=== PATIENT | male | born 1965 ===

== ENCOUNTER 2017-12-25 13:20 | Emergency (ER) | payer SELFPAY ==
[~2017-12-25 13:20] MED LIST: HYDR7.5T76 PO; Z.0.NO CURRENT MEDS
[2017-12-25 13:34] VITALS: BP 132/60; PULSE 75; RESP 18; TEMP 97.8; O2SAT 100
[2017-12-25] MEDS ORDERED: BACT800T5 PO (14:12)
[2017-12-25] MEDS ORDERED: IBUPROFEN 800 MG TAB PO ONE (14:15)
--- NOTE | 2017-12-25 14:16 | PD ---
HPI Chief Complaint: Laceration/Skin Injury Time Seen by Provider: 13:44 (Monica Herbert) Time Seen by Provider: 13:44 (Aicha Awan MD) Travel History International Travel<30 days: No Contact w/Intl Traveler<30days: No Traveled to known affect area: No (Monica Herbert) History of Present Illness HPI 52-year-old male presents to the emergency room for evaluation of an abscess to his right dorsal forearm. Patient states 3 days ago he injected heroin into his forearm and must have missed. States he has never done that before. States it has been growing and increasing in pain. He has not done anything or taken anything for symptoms. Denies fever, chills, nausea, vomiting. (Monica Herbert) PFSH Past Medical History Diminished Hearing: No Kidney Stones: Yes (Monica Herbert) Social History Alcohol Use: No Tobacco Use: Yes (4 CIG. PER DAY) Substance Use: No (Monica Herbert) Allergies-Medications (Allergen,Severity, Reaction): Coded Allergies: No Known Allergies (Verified , 10/01/12) Reported Meds & Prescriptions Reported Meds & Active Scripts Active Bactrim DS (Sulfamethoxazole-Trimethoprim) 800-160 Mg Tab 1 Tab PO BID Vicoprofen 7.5 mg/200 mg (Hydrocodone Bitartrate/Ibuprofen) 1 Tab Tab 1 Tab PO Q8HPRN Reported No Current Meds (Miscellaneous Medication) Misc (Aicha Awan MD) Review of Systems Except as stated in HPI: all other systems reviewed are Neg (Monica Herbert) Physical Exam Narrative GENERAL: Well-nourished, well-developed male in no acute distress. Afebrile. Ambulatory. SKIN: Focused skin assessment warm/dry. There is an indurated area in the right dorsal forearm which measures about 4 cm in diameter. It is fluctuant but there is no pointing or drainage. There is a zone of inflammation around it but no lymphangitis. HEAD: Normocephalic. EYES: No scleral icterus. No injection or drainage. NECK: Supple, trachea midline. No JVD or lymphadenopathy. CARDIOVASCULAR: Regular rate and rhythm without murmurs, gallops, or rubs. RESPIRATORY: Breath sounds equal bilaterally. No accessory muscle use. MUSCULOSKELETAL: No cyanosis. Moderate edema distal to the right forearm. 2+ radial pulse. Radial, ulnar, and median nerves intact. (Monica Herbert) Data Data Last Documented VS Vital Signs Date Time Temp Pulse Resp B/P (MAP) Pulse Ox O2 Delivery O2 Flow Rate FiO2 12/25/17 13:34 97.8 75 18 132/60 (84) 100 (Aicha Awan MD) Orders Orders Ibuprofen (Motrin) (12/25/17 14:15) Ed Discharge Order (12/25/17 14:16) (Aicha Awan MD) MDM Medical Decision Making Medical Screen Exam Complete: Yes Emergency Medical Condition: Yes Medical Record Reviewed: Yes Differential Diagnosis Abscess, cellulitis, folliculitis, IV drug abuse Narrative Course 52-year-old male presents to the emergency room for evaluation of abscess to his right dorsal forearm for the past 3 days. Symptoms started after patient injected IV heroin. No other complaints. No systemic signs of infection. Vital signs stable. Physical exam reveals a 4 cm abscess to the right dorsal forearm without lymphangitis or surrounding cellulitis. Abscess was drained a significant purulent drainage. Patient discharged with prescription for Bactrim and told to follow-up with a primary care physician or return for worsening symptoms. He understands and agrees to plan. (Monica Herbert) Procedures Procedure Narrative INCISION AND DRAINAGE OF ABSCESS: The area was prepped and was sterilely draped. A subcutaneous wheal of 1% lidocaine with a total number 4 mL was used to anesthetize the area properly. A number 11 scalpel was used to make a 1 cm incision across the area of the abscess. The abscess was drained, complex loculations were broken down, and irrigated with normal saline. Sterile dressing applied. (Monica Herbert) Diagnosis Primary Impression: Abscess of right arm Referrals: Primary Care Physician Additional Instructions: Rest and drink plenty of fluids. Take Bactrim as directed, until gone. Follow up with a primary care physician. Return to emergency room for worsening symptoms, as discussed. Med/Other Pt SpecificInfo: Prescription(s) given (Monica Herbert) Scripts Sulfamethoxazole-Trimethoprim (Bactrim DS) 800-160 Mg Tab 1 TAB PO BID for Infection, #20 TAB 0 Refills Prov: Aicha Awan MD 12/25/17 Disposition: 01 DISCHARGE HOME Condition: Stable Monica Herbert Dec 25, 2017 14:16 Aicha Awan MD Dec 25, 2017 14:17
== END 2017-12-25 14:34 | disposition home or self-care (01) ==
LOC: NEPK 13:20
DX: L02.413 Cutaneous abscess of right upper limb (principal); F17.210 Nicotine dependence, cigarettes, uncomplicated
CPT/HCPCS: 10060

== ENCOUNTER 2018-04-06 17:27 | Inpatient (IN) ==
[2018-04-06] MEDS ORDERED: Clindamycin 900 mg/NS Premix 900 MG/50 ML PIGGYBACK IV.SIG ONE (19:12)
--- NOTE | 2018-04-06 19:18 | ED ---
HPI General Chief complaint: Skin/Abscess/Foreign Body Stated complaint: Skin Time Seen by Provider: 04/06/18 19:03 Source: patient Mode of arrival: ambulatory Limitations: no limitations History of Present Illness HPI narrative: Patient is a 52-year-old male, past medical history significant for IV drug abuse but reports his last use was approximately 3 weeks ago, who presents with complaint of pain and swelling to his hand. He states that a couple days ago he was working on a trailer sustained several cuts to his hand and arm. He states that he started to have pain, erythema, swelling and 1 of the lesions opened up and drained pus. He states that since then he has had several other lesions appear some of which have also drained pus. He has not had fever but has had chills. No recent antibiotic use. No chest pain or shortness of breath. No changes in urination. complaint: abscess/boil Onset (ago): day(s) Location: LUE Severity: moderate Quality: aching Pain Consistency: constant Relieving factors: none Exacerbating factors: palpation Context: IVDA Associated symptoms: chills Related Data Home Medications Medication Instructions Recorded Confirmed No Known Home Medications 04/06/18 04/06/18 Allergies Allergy/AdvReac Type Severity Reaction Status Date / Time No Known Allergies Allergy Verified 04/06/18 18:37 Review of Systems Except as stated in HPI: all other systems reviewed are negative Constitutional Reports chills Eyes Denies blurry vision ENT Denies nasal congestion Cardiovascular Denies chest pain Respiratory Denies dyspnea Gastrointestinal Denies abdominal pain Genitourinary Denies flank pain Musculoskeletal Reports back pain Integumentary/Breasts Reports erythema and Denies rash Neurologic Denies weakness Psychiatric Denies confusion Endocrine Reports fatigue PMFSH Medical History Medical History Patient denies medical problems (Acute) Surgical History Surgical History No history of previous surgery (Acute) Social History Social History Substance History: Active Abuse Second Hand Smoke Exposure: Yes Smoking Status: Current every day smoker Tobacco Type: Cigarettes How Often Do You Have a Drink Containing Alcohol: Never Recent Travel in [facility] within the Last 8 Weeks: No Recent Out of Country Travel within the Last 8 Weeks: No Substance Abuse Detail Marijuana: Substance Use Status: Active Route Used Substance Abuse: By Mouth Substance Frequency: everyday Reason for Use: Calm Down Immunization History Tetanus Immunization: <5 Years Tetanus Immunization Year if Known: 2016 Hx Influenza Vaccine This Season: No Exam Narrative Exam Narrative: GENERAL: Well-appearing male in no acute distress SKIN: Focused skin assessment warm/dry. Left upper extremity reveals several areas of cellulitis and what appear to be abscesses that have since drained. He does have one area of marked swelling, induration, fluctuance with erythema on the left wrist. No skin changes to the back. HEAD: Atraumatic. Normocephalic. EYES: Pupils equal and round. No scleral icterus. No injection or drainage. ENT: No nasal bleeding or discharge. Mucous membranes pink and moist. NECK: Trachea midline. No JVD. CARDIOVASCULAR: Regular rate and rhythm. No murmur appreciated. Intact and equal peripheral pulses. RESPIRATORY: No accessory muscle use. Clear to auscultation. Breath sounds equal bilaterally. GASTROINTESTINAL: Abdomen soft, non-tender, nondistended. Hepatic and splenic margins not palpable. MUSCULOSKELETAL: No obvious deformities. No clubbing. No cyanosis. No edema. Tenderness on palpation of the lumbar spine. NEUROLOGICAL: Awake and alert. No obvious cranial nerve deficits. Motor grossly within normal limits. Normal speech. PSYCHIATRIC: Appropriate mood and affect; insight and judgment normal. Procedures Abscess I/D Site: upper extremity Side (if applicable): left Sedation/analgesia: other (topical ethyl chloride) Irrigation: Yes Packing used?: none Course Hospital Course: On arrival patient was placed on a monitor and IV was established. Blood cultures were drawn. Labs are drawn and sent and he was given a dose of clindamycin. Imaging studies were ordered at time of arrival. Initial Documented Vital Signs Temperature 98.5 F 04/06/18 17:30 Pulse Rate 91 H 04/06/18 17:30 Respiratory Rate 17 04/06/18 17:30 Blood Pressure 125/72 04/06/18 17:30 Pulse Oximetry 100 04/06/18 17:30 Last Documented Vital Signs Temperature 98.5 F 04/06/18 17:30 Pulse Rate 91 H 04/06/18 17:30 Respiratory Rate 17 04/06/18 17:30 Blood Pressure 125/72 04/06/18 17:30 Pulse Oximetry 100 04/06/18 17:30 Medical Decision Making MDM Narrative Medical decision making narrative: Patient is a 52-year-old male, past medical history significant for IV drug abuse though he states he recently stopped doing this. Who presents with complaint of pain and swelling to his left upper extremity after he scratched it at work within the last week. He has several areas that appear to have been abscesses that have since drained in 1 acute abscess with fluctuance. This was drained at bedside by the DIVISION MANAGER. He is hemodynamically stable but labs do reveal a leukocytosis and creatinine elevation consistent with an acute kidney injury. He has been given fluids and clindamycin empirically. Blood and wound cultures were sent. CT of the lumbar spine was ordered but is pending. He has been admitted to Dr. Woody, hospitalist on-call for further workup and evaluation. Differential Diagnosis Differential Diagnosis: Differential diagnosis includes but is not limited to cellulitis, abscess, osteomyelitis, epidural abscess. Medical Records Medical records reviewed: Yes I reviewed the patient's medical records. Lab Data Lab results reviewed: Yes I reviewed the patient's lab results. Lab results narrative: Leukocytosis and acute kidney injury Result diagrams: 04/06/18 19:17 04/06/18 19:17 Lab Results 04/06/18 04/06/18 Range/Units 19:17 19:17 WBC 15.2 H (4.0-11.0) th/mm3 RBC 4.54 (4.50-5.90) mil/mm3 Hgb 13.0 (13.0-17.0) gm/dL Hct 39.2 (39.0-51.0) % MCV 86.4 (80.0-100.0) fL MCH 28.6 (27.0-34.0) pg MCHC 33.2 (32.0-36.0) % RDW 14.0 (11.6-17.2) % Plt Count 336 (150-450) th/mm3 MPV 8.4 (7.0-11.0) fL Sodium 134 L (136-145) meq/L Potassium 4.8 (3.5-5.1) meq/L Chloride 101 (98-107) meq/L Carbon Dioxide 26.1 (21.0-32.0) meq/L Anion Gap 7 (5-15) meq/L BUN 23 H (7-18) mg/dL Creatinine 1.67 H (0.60-1.30) mg/dL Estimated GFR 43 L (>89) mL/min Random Glucose 83 (74-106) mg/dL Calcium 9.2 (8.5-10.1) mg/dL Imaging Data Attestation: I personally reviewed and interpreted this imaging study as follows : My impression: No gas within the soft tissues. No acute fracture. Radiologist's impression: Forearm X-Ray 04/06/18 19:12 CONCLUSION: No evidence of fracture. Hand X-Ray 04/06/18 19:12 CONCLUSION: Soft tissue swelling. No evidence of fracture. Discharge Plan Discharge Disposition Patient Disposition: 30 Still Patient Discharge Condition Condition: Stable Discharge Details Diagnosis: Cellulitis and abscess of hand, except fingers and thumb, ABHILASH (acute kidney injury) Physicians Team ED Provider: Malu Rios ED Midlevel Provider: Dorothy Melton Primary Care Provider: Primary Care Natividad Fuller Attending Provider: Britany Woody Status ED Status: Admitted Patient
[2018-04-06 19:46] LABS: Hematocrit 39.2 % (39.0-51.0); Mean Corpuscular HGB Conc 33.2 % (32.0-36.0); Mean Corpuscular Hemoglobin 28.6 pg (27.0-34.0); Mean Corpuscular Volume 86.4 fL (80.0-100.0); Mean Platelet Volume 8.4 fL (7.0-11.0); Platelet Count 336 th/mm3 (150-450); Red Blood Count 4.54 mil/mm3 (4.50-5.90); White Blood Count 15.2 th/mm3 (4.0-11.0)
--- NOTE | 2018-04-06 20:04 | XR ---
EXAM DATE: 04/06/2018 7:57 PM EDT AGE/SEX: 52 years / Male INDICATIONS: Pain. Patient states he punctured his LT 4th digit on a musa nail two days ago and now has swelling along with discoloration increasing up his arm. CLINICAL DATA: This is the patient's initial encounter. Patient reports that signs and symptoms have been present for 2 days and indicates a pain score of 4/10. MEDICAL/SURGICAL HISTORY: . IV drug user. None. COMPARISON: No prior exams available for comparison. FINDINGS: 3 views of left hand. Soft tissue swelling is noted medially. Alignment within normal limits. No evid ence fracture. No focal bone erosion identified. No radiopaque foreign body identified. CONCLUSION: Soft tissue swelling. No evidence of fracture. Electronically signed by: Nabeel Andrews MD 04/06/2018 8:03 PM EDT
[2018-04-06 20:05] LABS: Calcium 9.2 mg/dL (8.5-10.1); Carbon Dioxide 26.1 meq/L (21.0-32.0); Potassium 4.8 meq/L (3.5-5.1)
--- NOTE | 2018-04-06 20:10 | XR ---
EXAM DATE: 04/06/2018 7:56 PM EDT AGE/SEX: 52 years / Male INDICATIONS: Pain. Patient states he punctured his LT 4th digit on a musa nail two days ago and now has swelling along with discoloration increasing up his arm. CLINICAL DATA: This is the patient's initial encounter. Patient reports that signs and symptoms have been present for 2 days and indicates a pain score of 3/10. MEDICAL/SURGICAL HISTORY: None. IV drug user. None. COMPARISON: [facility], HAND COMPLETE LEFT MIN 3V, 04/06/2018. . FINDINGS: 2 views of the left forearm. Bone alignment within normal limits. No evidence of fracture. No focal b one erosion. CONCLUSION: No evidence of fracture. Electronically signed by: Nabeel Andrews MD 04/06/2018 8:09 PM EDT
[2018-04-06] MEDS ORDERED: Sod Chloride 0.9% Inj 1,000 ML IV.SIG ONE (20:49)
[2018-04-06] MEDS ORDERED: Acetaminophen 325 MG Tablet PO PRN (21:40)
[2018-04-06] MEDS ORDERED: Temazepam 15 MG Capsule PO PRN (21:40)
[2018-04-06] MEDS ORDERED: Bisacodyl 10 MG Supp RECTAL PRN (21:40)
[2018-04-06] MEDS ORDERED: Sod Chloride 0.9% Inj 1,000 ML IV.CONT SCH (21:45)
--- NOTE | 2018-04-06 21:54 | P.HPIM ---
History of Present Illness Primary Care Physician: No Primary Care Physician History of Present Illness: This is a 52-year-old male with a PMH of Tobacco Abuse and IVDU who presented to the ER with complaints of left arm/hand pain and swelling for approx 3 days. States he last injected drugs 1wk ago. Few days later noticed left arm swelling and worsening pain w/ multiple abscesses, few of which have drained on their own. Denies fever or chills. On arrival, BP 125/72, HR 91, O2 sat 100% on RA, Afebrile. WBC 15.2. Creatinine 1.67, no previous labs for comparison. Hand X-ray with soft tissue swelling, no fracture. Forearm X-ray negative for fracture. S/p I&D in ER of left wrist/forearm abscess. S/p Clinda. - Diagnosis (1) SIRS (systemic inflammatory response syndrome) (2) IVDU (intravenous drug user) (3) Cellulitis and abscess of hand, except fingers and thumb (4) ABHILASH (acute kidney injury) (5) Back pain Inpatient Certification: I certify that the inpatient services were ordered in accordance with Medicare regulations governing the order. This includes certification that hospital inpatient services are reasonable and necessary and in the case of services not specified as inpatient-only under 42 CFR 419.22(n), that they are appropriately provided as inpatient services in accordance to with the 2-midnight benchmark under 43 CFR 412.3(e) Estimated Total Length of Stay (Days): 2 Plans for Post Hospital Care: Not yet determined Review of Systems PAST FAMILY HISTORY: Reviewed. No h/o DM or CAD All other systems reviewed negative except as stated [facility] - History History Provided By: Patient - Medical History Medical History: Medical History (Last Reviewed 04/06/18 @ 19:19 by Malu Rios MD) Patient denies medical problems - Surgical History Surgical History: Surgical History (Last Reviewed 04/06/18 @ 19:19 by Malu Rios MD) No history of previous surgery - Tobacco History Second Hand Smoke Exposure: Yes Tobacco Use In Past 30 Days: Yes Smoking Status: Current every day smoker Tobacco Type: Cigarettes - Alcohol History How Often Do You Have a Drink Containing Alcohol: Never - Substance Use History Substance History: Active Abuse - Substance Use Type Marijuana Status: Active Route Used: By Mouth Frequency: everyday Reason for Use: Calm Down - Travel History Recent Travel in the [place] Within the Last 8 Weeks: No Recent Travel Out of the Country Within the Last 8 Weeks: No - Immunization History Tetanus Immunization: <5 Years Tetanus Immunization Year if Known: 2016 Hx Influenza Vaccine This Season: No Medications and Allergies Active Medications: Active Medications Acetaminophen (Tylenol) 650 mg PO Q4H PRN PRN Reason: Temp > 100.4 Al Hydroxide/Mg Hydroxide (Milk Of Magnesia Liq) 30 ml PO Q12H PRN PRN Reason: Mild Constipation Bisacodyl (Dulcolax Supp) 10 mg RECTAL DAILY PRN PRN Reason: SEVERE CONSITIPATION Cefepime HCl 1,000 mg/ Sodium (Chloride) 100 mls @ 200 mls/hr IV.SIG Q12H CALVIN Sodium Chloride (Ns Inj) 1,000 mls @ 100 mls/hr IV.CONT .Q10H CALVIN Pharmacy Profile Note (Vancomycin Consult Pharmacy) 0 mls @ 0 mls/hr OTHER UNSCH CALVIN Lactulose (Lactulose Liq) 30 ml PO DAILY PRN PRN Reason: SEVERE CONSITIPATION Lorazepam (Ativan Inj) 1 mg IV.PUSH Q4H PRN PRN Reason: WITHDRAWAL/AGITATION Ondansetron HCl (Zofran Inj) 4 mg IV.PUSH Q6H PRN PRN Reason: NAUSEA OR VOMITING Senna/Docusate Sodium (Patience-Colace) 1 tab PO BID CALVIN Sennosides (Senokot) 17.2 mg PO Q12H PRN PRN Reason: Moderate Constipation Temazepam (Restoril) 15 mg PO HS PRN PRN Reason: INSOMNIA Allergies Allergy/AdvReac Type Severity Reaction Status Date / Time No Known Allergies Allergy Verified 04/06/18 18:37 Home Medications Medication Instructions Recorded Confirmed Type No Known Home Medications 04/06/18 04/06/18 History Exam Vital signs: Vital Signs 04/06/18 17:30 Temperature 98.5 F Pulse Rate 91 H Respiratory Rate 17 Blood Pressure 125/72 Pulse Oximetry 100 Intake & Output 04/06/18 04/06/18 04/07/18 06:59 18:59 06:59 Weight 70.307 kg Narrative: PE: GENERAL: Middle aged white male in no acute distress. HEENT: PERRLA, EOMI. No scleral icterus or conjunctival pallor. No lid lag or facial droop. CARDIOVASCULAR: Regular rate and rhythm. No obvious murmurs to auscultation. No chest tenderness to palpation. RESPIRATORY: No obvious rhonchi or wheezing. Clear to auscultation. Breath sounds equal bilaterally. GASTROINTESTINAL: Abdomen soft, non-tender, nondistended. BS normal. MUSCULOSKELETAL: Extremities without clubbing, cyanosis, or edema. No obvious deformities. LUE swelling from hand to forearm, multiple abscesses w/ previous drainage, large left wrist abscess s/p I&D. NEUROLOGICAL: Awake, alert and oriented x4. No focal neurologic deficits. Moving both upper and lower extremities spontaneously. Results - Labs CBC & Chem 7: 04/06/18 19:17 04/06/18 19:17 Labs: Short CBC 04/06/18 Range/Units 19:17 WBC 15.2 H (4.0-11.0) th/mm3 Hgb 13.0 (13.0-17.0) gm/dL Hct 39.2 (39.0-51.0) % Plt Count 336 (150-450) th/mm3 BMP 04/06/18 19:17 Sodium 134 L Potassium 4.8 Chloride 101 Carbon Dioxide 26.1 BUN 23 H Creatinine 1.67 H Calcium 9.2 - Imaging Impressions Forearm X-Ray 04/06/18 19:12 CONCLUSION: No evidence of fracture. Hand X-Ray 04/06/18 19:12 CONCLUSION: Soft tissue swelling. No evidence of fracture. Caprini VTE Risk Assessment Caprini VTE Risk Assessment: No/Low Risk (score <= 1) Caprini Risk Assessment Model: Point Value = 1 Point Value = 2 Point Value = 3 Point Value = 5 Age 41-60 Minor surgery BMI > 25 kg/m2 Swollen legs Varicose veins or History of unexplained or recurrent spontaneous Oral contraceptives or hormone replacement Sepsis (< 1 month) Serious lung disease, including pneumonia (< 1 month) Abnormal pulmonary function Acute myocardial infarction Congestive heart failure (< 1 month) History of inflammatory bowel disease Medical patient at bed rest Age 61-74 Arthroscopic surgery Major open surgery (> 45 min) Laparoscopic surgery (> 45 min) Malignancy Confined to bed (> 72 hours) Immobilizing plaster cast Central venous access Age >= 75 History of VTE Family history of VTE Factor V Leiden Prothrombin [id number] Lupus anticoagulant Anticardiolipin antibodies Elevated serum homocysteine Heparin-induced thrombocytopenia Other congenital or acquired thrombophilia Stroke (< 1 month) Elective arthroplasty Hip, pelvis, or leg fracture Acute spinal cord injury (< 1 month) Prophylaxis Regimen: Total Risk Factor Score Risk Level Prophylaxis Regimen 0-1 Low Early ambulation 2 Moderate Order ONE of the following: *Sequential Compression Device (SCD) *Heparin 5000 units SQ BID 3-4 Higher Order ONE of the following medications: *Heparin 5000 units SQ TID *Enoxaparin/Lovenox 40 mg SQ daily (WT < 150 kg, CrCl > 30 mL/min) *Enoxaparin/Lovenox 30 mg SQ daily (WT < 150 kg, CrCl > 10-29 mL/min) *Enoxaparin/Lovenox 30 mg SQ BID (WT < 150 kg, CrCl > 30 mL/min) AND/OR *Sequential Compression Device (SCD) 5 or more Highest Order ONE of the following medications: *Heparin 5000 units SQ TID (Preferred with Epidurals) *Enoxaparin/Lovenox 40 mg SQ daily (WT < 150 kg, CrCl > 30 mL/min) *Enoxaparin/Lovenox 30 mg SQ daily (WT < 150 kg, CrCl > 10-29 mL/min) *Enoxaparin/Lovenox 30 mg SQ BID (WT < 150 kg, CrCl > 30 mL/min) AND *Sequential Compression Device (SCD) Assessment and Plan - Assessment (1) SIRS (systemic inflammatory response syndrome) Code(s): R65.10 - Systemic inflammatory response syndrome (SIRS) of non- infectious origin without acute organ dysfunction Status: Acute (2) IVDU (intravenous drug user) Code(s): F19.90 - Other psychoactive substance use, unspecified, uncomplicated Status: Acute (3) Cellulitis and abscess of hand, except fingers and thumb Code(s): L03.119 - Cellulitis of unspecified part of limb; L02.519 - Cutaneous abscess of unspecified hand Status: Acute (4) ABHILASH (acute kidney injury) Code(s): N17.9 - Acute kidney failure, unspecified Status: Acute (5) Back pain Code(s): M54.9 - Dorsalgia, unspecified Status: Acute - Plan A/P: 1. SIRS: HR 94, WBC 15, Source-LUE cellulitis/abscess, s/p Clinda IV in ER, will continue w/ IV Abx, follow up cultures. 2. LUE Cellulitis/Abscess: secondary to IVDU, multiple abscesses some of which have previously drained, +large abscess left hand/wrist, s/p I&D, follow up wound cultures, Consult Hand Sx for further evaluation/intervention, continue w/ IV Vanc/Cefepime. 3. ABHILASH: Creatinine 1.67, no previous labs for comparison, presumably new. Check U/a, check UDS, IVF for hydration, monitor I/O, repeat labs in am. 4. IVDU: Ongoing, Ativan prn for withdrawal/agitation. 5. DVT Prophylaxis: SCD/Teds 6. Social work for dc planning as needed 7. Case discussed w/ ER physician at length, labs/records/imaging reviewed by me.
[2018-04-06] MEDS ORDERED: Vancomycin Inj 1,500 MG in Sodium Chlor 0.9% Inj 500 ML IV.SIG SCH (23:00)
--- NOTE | 2018-04-07 00:56 | CT ---
EXAM DATE: 04/07/2018 12:18 AM EDT AGE/SEX: 52 years / Male INDICATIONS: Low back pain. Evaluate for epidural abscess. CLINICAL DATA: This is the patient's initial encounter. Patient reports that signs and symptoms have been present for 1 day and indicates a pain score of 7/10. MEDICAL/SURGICAL HISTORY: . IV drug user None. RADIATION DOSE: 23.49 CTDI (mGy) COMPARISON: No prior exams available for comparison. TECHNIQUE: Contiguous axial images were acquired with a multirow detector CT scanner after intraveno us administration of 100 ml Omnipaque 350 (iohexol) nonionic water-soluble contrast as a single exam dose. Multiplanar reconstructions in the sagittal and coronal plane were also performed. Using auto mated exposure control and adjustment of the mA and/or kV according to patient size, radiation dose w as kept as low as reasonably achievable to obtain optimal diagnostic quality images. DICOM format im age data is available electronically for review and comparison. FINDINGS: Vertebrae: Normal vertebral body height. No focal areas of bony destruction. Alignment: Normal. No subluxation. Post Contrast: No abnormal areas of enhancement are seen in the cord, dural or paraspinal regions. Other: Atrophic left kidney. There is a calcified stone measuring 1.3 cm tip to junction of the extra renal pelvis and proximal left ureter. Upper pole cysts. The visualized portion of the right kidney i s normal. T12-L1: The thecal sac has a normal diameter. No evidence of disc bulge or protrusion. The neural foramina are patent bilaterally. L1-L2: The thecal sac has a normal diameter. No evidence of disc bulge or protrusion. The neural f oramina are patent bilaterally. L2-L3: The thecal sac has a normal diameter. No evidence of disc bulge or protrusion. The neural f oramina are patent bilaterally. L3-L4: Mild broad-based bulging of the disc flattens the ventral margin of the thecal sac and extend s into the neural foramina bilaterally. No evidence of disc protrusion. L4-L5: Minimal bulging of the disc flattens the ventral margin of thecal sac and extends into the ne ural foramina bilaterally. Lateral recesses are patent. No evidence of disc protrusion. L5-S1: Central protrusion of the disc is contained within the epidural fat does not cause significan t deformity of the thecal sac. There is extension into the neural foramina bilaterally with probable neural impingement within the neural foramina. CONCLUSION: 1. No evidence of epidural abscess. 2. Broad-based protrusion of the L5-S1 disc with probable neural impingement bilaterally with neural foramina. 3. Mild disc bulging L3-4 and L4-5. 4. Abnormal appearance to the left kidney with marked atrophy. There is also a large calcified stone at the junction of the extrarenal pelvis and proximal left ureter. Electronically signed by: Aba Fair MD 04/07/2018 12:55 AM EDT
[2018-04-07 01:02] LABS: Bilirubin,Urine Negative (Negative); Clarity,Urine Clear (Clear); Color,Urine Straw (Yellw/Straw); Glucose,Urine (UA) Negative (Negative); Leukocyte Esterase,Urine Negative (Negative); Nitrite,Urine Negative (Negative); Specific Gravity,Urine 1.026 (1.002-1.035); Squamous Epithelial Cell,Urine <1 /hpf (0-5)
[2018-04-07 01:09] LABS: Amphetamine Screen,Urine Neg (Neg); Barbiturate Screen,Urine Neg (Neg); Cannabinoid Screen,Urine Pos (Neg); Cocaine Screen,Urine Neg (Neg)
[2018-04-07 01:10] LABS: Opiate Screen,Urine Pos (Neg)
--- NOTE | 2018-04-07 08:41 | P.PNIM ---
Subjective Interval history: Patient reports feeling well. He denies any fever, chills. He reports his pain is well-controlled with his current pain medications. He showed me the abscess on his left wrist status post incision and drainage. He reports that he still has motor function and sensation in his left hand. I recommended continuing to express the abscess. Physical Exam Vital signs: Vital Signs 04/06/18 17:30 04/06/18 21:43 04/07/18 00:00 Temperature 98.5 F 98.2 F 97 F L Pulse Rate 91 H 88 55 L Respiratory Rate 17 20 16 Blood Pressure 125/72 136/72 122/60 Pulse Oximetry 100 97 98 04/07/18 04:00 Temperature 97.9 F Pulse Rate 77 Respiratory Rate 18 Blood Pressure 116/69 Pulse Oximetry 98 Intake & Output 04/06/18 04/07/18 04/07/18 18:59 06:59 18:59 Intake Total 460 / 460 Balance 460 / 460 Weight 70.307 kg 65.8 kg Intake: IV 100 / 100 Maxipime Inj 1,000 MG In NS Inj 100 / 100 100 ML @ 200 mls/hr IV.SIG Q12H [facility] Rx#:[id number] Oral 360 / 360 Other: # Voids 3 Weight On Admission 65.8 kg Narrative: PE: GENERAL: Middle aged white male in no acute distress. HEENT: PERRLA, EOMI. No scleral icterus or conjunctival pallor. No lid lag or facial droop. CARDIOVASCULAR: Regular rate and rhythm. No obvious murmurs to auscultation. No chest tenderness to palpation. RESPIRATORY: No obvious rhonchi or wheezing. Clear to auscultation. Breath sounds equal bilaterally. GASTROINTESTINAL: Abdomen soft, non-tender, nondistended. BS normal. MUSCULOSKELETAL: Extremities without clubbing, cyanosis, or edema. No obvious deformities. Multiple abscesses w/ previous drainage, on LUE, now with multiple well-healing scabs. Large left wrist abscess on dorsum of left wrist s/p I&D. 1 cm incision surrounded by 4 cm diameter of swelling elevated about 1 cm off of the skin. When pushing on the abscess, a few cc of purulent material is expressed. 2+ left radial pulse. Neurovascularly intact to left hand with intact motor and sensation, less than 2 second capillary refill. NEUROLOGICAL: Awake, alert and oriented x4. No focal neurologic deficits. Moving both upper and lower extremities spontaneously. Results - Labs CBC & Chem 7: 04/06/18 19:17 04/06/18 19:17 Laboratory Results - last 24 hr 04/06/18 04/06/18 04/07/18 19:17 19:17 00:15 WBC 15.2 H RBC 4.54 Hgb 13.0 Hct 39.2 MCV 86.4 MCH 28.6 MCHC 33.2 RDW 14.0 Plt Count 336 MPV 8.4 Sodium 134 L Potassium 4.8 Chloride 101 Carbon Dioxide 26.1 Anion Gap 7 BUN 23 H Creatinine 1.67 H Estimated GFR 43 L Random Glucose 83 Calcium 9.2 Urine Color Urine Clarity Urine pH Ur Specific Rupert Urine Protein Urine Glucose (UA) Urine Ketones Urine Occult Blood Urine Nitrate Urine Bilirubin Urine Urobilinogen Ur Leukocyte Esterase Urine RBC Urine WBC Ur Squamous Epith Cells Micro UA Comment Urine Culture Comments Urine Opiates Screen Pos H Ur Barbiturates Screen Neg Ur Amphetamines Screen Neg U Benzodiazepines Scrn Neg Urine Cocaine Screen Neg U Cannabinoids Screen Pos H 04/07/18 00:15 WBC RBC Hgb Hct MCV MCH MCHC RDW Plt Count MPV Sodium Potassium Chloride Carbon Dioxide Anion Gap BUN Creatinine Estimated GFR Random Glucose Calcium Urine Color Straw Urine Clarity Clear Urine pH 5.0 Ur Specific Rupert 1.026 Urine Protein Negative Urine Glucose (UA) Negative Urine Ketones Negative Urine Occult Blood Negative Urine Nitrate Negative Urine Bilirubin Negative Urine Urobilinogen Less than 2 Ur Leukocyte Esterase Negative Urine RBC Less than 1 Urine WBC Less than 1 Ur Squamous Epith Cells <1 Micro UA Comment Culture not ind Urine Culture Comments Culture not ind Urine Opiates Screen Ur Barbiturates Screen Ur Amphetamines Screen U Benzodiazepines Scrn Urine Cocaine Screen U Cannabinoids Screen Microbiology 04/06/18 21:10 Abscess - Arm Gram Stain - Final - Imaging Impressions Forearm X-Ray 04/06/18 19:12 CONCLUSION: No evidence of fracture. Hand X-Ray 04/06/18 19:12 CONCLUSION: Soft tissue swelling. No evidence of fracture. Lumbar Spine CT 04/06/18 19:18 CONCLUSION: 1. No evidence of epidural abscess. 2. Broad-based protrusion of the L5-S1 disc with probable neural impingement bilaterally with neural foramina. 3. Mild disc bulging L3-4 and L4-5. 4. Abnormal appearance to the left kidney with marked atrophy. There is also a large calcified stone at the junction of the extrarenal pelvis and proximal left ureter. Assessment and Plan - Plan A/P: This is a 52-year-old male with a PMH of IVDU who presented to the ER with complaints of left arm/hand pain and swelling for approx 3 days. States he last injected drugs 1wk ago. 1. SIRS c/f sepsis: HR < 90 since yesterday, WBC 15 yesterday, Source-LUE cellulitis/abscess, s/p Clinda IV in ER on 04/06/18, will continue w/ IV Abx with Vanc and Cefepime (04/07/18 - present), blood cultures pending. 2. LUE Cellulitis/Abscess: secondary to IVDU, multiple abscesses some of which have previously drained, +large abscess left hand/wrist, s/p I&D, wound cultures show rare WBCs, few gram positive cocci in pairs, Consult Hand Sx for further evaluation/intervention, continue w/ IV Vanc/Cefepime. Plan for IV abx for 48 hours, f/u blood culture with sensitivities to help guide oral abx for d/ c. Addendum: Hand surgery consult recommendations appreciated below: - continue follow up with wound clinic - no intervention at this time; ; no f/u with hand surgery at this time; d/c per primary team 3. ABHILASH: Creatinine 1.67, no previous labs for comparison, presumably new. U/ a unremarkable, UDS + for marijuana and opiates, IVF for hydration, monitor I/O , repeat labs in am. 4. IVDU: Ongoing, Ativan prn for withdrawal/agitation. 5. DVT Prophylaxis: SCD/Teds 6. Social work for dc planning as needed 7. labs/records/imaging reviewed by me Code Status: Full code Discharge Planning: Plan for IV abx for 48 hours, d/c pending blood culture with sensitivities to help guide oral abx for d/c.
[2018-04-07] MEDS ORDERED: Vancomycin Consult Pharmacy 1 EACH OTHER SCH (09:00)
[2018-04-07] MEDS ORDERED: Senna/Docusate Sodium 8.6/50 MG Tablet PO SCH (09:00)
[2018-04-07] MEDS ORDERED: Gadobutrol PF 2 MMOL/2 ML Vial (for RAD) IV.SIG ONE (09:31)
--- NOTE | 2018-04-07 10:09 | MR ---
EXAM DATE: 04/07/2018 9:51 AM EDT AGE/SEX: 52 years / Male INDICATIONS: Abscess. Draining wound dorsal aspect mid left wrist. CLINICAL DATA: This is the patient's initial encounter. Patient reports that signs and symptoms have been present for 2 days and indicates a pain score of 3/10. MEDICAL/SURGICAL HISTORY: . IVDA. None. COMPARISON: No prior exams available for comparison. TECHNIQUE: Multiplanar, multisequence MRI examination was performed without contrast and after intra venous administration of 6cc ml Gadavist (gadobutrol) contrast as a single exam dose. FINDINGS: Marrow: There is homogeneous signal in the marrow of the visualized bones of the wrist. Triangular Fibrocartilage Complex: The TFC complex is intact. Intrinsic Carpal Ligaments: The scapholunate and lunotriquetral ligaments are intact. Extensor Tendons: No evidence of tear, displacement, or tenosynovitis in the extensor carpi ulnaris, extensor digiti minimi, extensor digitorum, extensor pollicis longus, extensor carpi radialis brevis , extensor carpi radialis longus, extensor pollicis brevis, and abductor pollicis longus tendons. Carpal Tunnel/Flexor Tendons: The median nerve has a normal size, shape, and signal. The flexor ret inaculum is not thickened or bowed. The flexor tendons are unremarkable. Ulnar Nerve: Normal in course, size, and signal. No evidence of compression at Guyon's canal. Soft Tissues: Soft tissues demonstrate extensive circumferential soft tissue edema, most pronounced along the dorsal aspect of the wrist at the distal radial ulnar joint level where there is a rim-enha ncing irregular fluid collection measuring 1.3 cm anterior posterior by 9 mm transversely by 1.3 cm i n length. Joints: No evidence of erosion, effusion, or malalignment in the distal radioulnar joint, intercarpa l joints, or carpal-metacarpal joints. CONCLUSION: 1. Since of subcutaneous edema with a focal abscess overlying the dorsal aspect of the wrist at the level of the distal radial ulnar joint. No evidence of extension into the deeper soft tissues. Electronically signed by: Nory Koroma MD 04/07/2018 10:07 AM EDT
--- NOTE | 2018-04-07 10:36 | P.PNOP ---
Physical Exam Vital signs: Vital Signs 04/06/18 17:30 04/06/18 21:43 04/07/18 00:00 Temperature 98.5 F 98.2 F 97 F L Pulse Rate 91 H 88 55 L Respiratory Rate 17 20 16 Blood Pressure 125/72 136/72 122/60 Pulse Oximetry 100 97 98 04/07/18 04:00 04/07/18 08:00 Temperature 97.9 F 98 F Pulse Rate 77 79 Respiratory Rate 18 18 Blood Pressure 116/69 132/76 Pulse Oximetry 98 98 Intake & Output 04/06/18 04/07/18 04/07/18 18:59 06:59 18:59 Intake Total 460 / 460 1000 / 1000 Balance 460 / 460 1000 / 1000 Weight 70.307 kg 65.8 kg Intake: IV 100 / 100 1000 / 1000 NS Inj 1,000 ML @ 100 mls/hr IV 1000 / 1000 .CONT .Q10H [facility] Rx#:[id number] Maxipime Inj 1,000 MG In NS Inj 100 / 100 100 ML @ 200 mls/hr IV.SIG Q12H [facility] Rx#:[id number] Oral 360 / 360 Other: # Voids 3 Weight On Admission 65.8 kg Results - Labs CBC & Chem 7: 04/06/18 19:17 04/06/18 19:17 Laboratory Results - last 24 hr 04/06/18 04/06/18 04/07/18 19:17 19:17 00:15 WBC 15.2 H RBC 4.54 Hgb 13.0 Hct 39.2 MCV 86.4 MCH 28.6 MCHC 33.2 RDW 14.0 Plt Count 336 MPV 8.4 Sodium 134 L Potassium 4.8 Chloride 101 Carbon Dioxide 26.1 Anion Gap 7 BUN 23 H Creatinine 1.67 H Estimated GFR 43 L Random Glucose 83 Calcium 9.2 Urine Color Urine Clarity Urine pH Ur Specific Wilsey Urine Protein Urine Glucose (UA) Urine Ketones Urine Occult Blood Urine Nitrate Urine Bilirubin Urine Urobilinogen Ur Leukocyte Esterase Urine RBC Urine WBC Ur Squamous Epith Cells Micro UA Comment Urine Culture Comments Urine Opiates Screen Pos H Ur Barbiturates Screen Neg Ur Amphetamines Screen Neg U Benzodiazepines Scrn Neg Urine Cocaine Screen Neg U Cannabinoids Screen Pos H 04/07/18 00:15 WBC RBC Hgb Hct MCV MCH MCHC RDW Plt Count MPV Sodium Potassium Chloride Carbon Dioxide Anion Gap BUN Creatinine Estimated GFR Random Glucose Calcium Urine Color Straw Urine Clarity Clear Urine pH 5.0 Ur Specific Wilsey 1.026 Urine Protein Negative Urine Glucose (UA) Negative Urine Ketones Negative Urine Occult Blood Negative Urine Nitrate Negative Urine Bilirubin Negative Urine Urobilinogen Less than 2 Ur Leukocyte Esterase Negative Urine RBC Less than 1 Urine WBC Less than 1 Ur Squamous Epith Cells <1 Micro UA Comment Culture not ind Urine Culture Comments Culture not ind Urine Opiates Screen Ur Barbiturates Screen Ur Amphetamines Screen U Benzodiazepines Scrn Urine Cocaine Screen U Cannabinoids Screen Microbiology 04/06/18 21:10 Abscess - Arm Gram Stain - Final - Imaging Impressions Forearm X-Ray 04/06/18 19:12 CONCLUSION: No evidence of fracture. Hand X-Ray 04/06/18 19:12 CONCLUSION: Soft tissue swelling. No evidence of fracture. Lumbar Spine CT 04/06/18 19:18 CONCLUSION: 1. No evidence of epidural abscess. 2. Broad-based protrusion of the L5-S1 disc with probable neural impingement bilaterally with neural foramina. 3. Mild disc bulging L3-4 and L4-5. 4. Abnormal appearance to the left kidney with marked atrophy. There is also a large calcified stone at the junction of the extrarenal pelvis and proximal left ureter. Wrist MRI 04/07/18 00:00 CONCLUSION: 1. Since of subcutaneous edema with a focal abscess overlying the dorsal aspect of the wrist at the level of the distal radial ulnar joint. No evidence of extension into the deeper soft tissues. Assessment and Plan - Assessment and Plan Please see dictated consult note. 52yM superficial abscess dorsum L wrist s/p I&D by ER physician. MRI shows superficial edema with no involvement deep structures -No indication for surgical intervention at this time, followup with wound clinic or PCP. Okay to discharge per hand surgery once antibiotic needs determined by primary team. Will sign off.
--- NOTE | 2018-04-07 10:48 | MB ---
cc: Janett Hayden MD DATE: 04/07/2018 REASON FOR CONSULTATION: Abscess, left dorsal wrist. HISTORY OF PRESENT ILLNESS: Viktor is a 52-year-old right hand dominant male, who states he does have a past medical history significant for IV drug use, but he denies injecting over the left wrist. He states that he scraped his left ring finger on a nail approximately 1 week ago and then approximately 2 days ago noted an abscess over the dorsum of the left wrist. He presented to the emergency room for evaluation. He underwent incision and drainage by the emergency room physician last night with a dressing in place. He reports improvement in the pain and swelling since the incision and drainage. He has multiple track dasilva over the left forearm. Compartments are soft and compressible. He denies any paresthesias. PAST MEDICAL HISTORY: Denies. PAST SURGICAL HISTORY: Unknown. 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 He is a daily smoker. The patient admits to marijuana use, as well as IV drugs in the past. Urine also positive for opioids. ALLERGIES: NO KNOWN DRUG ALLERGIES. PHYSICAL EXAMINATION: The patient is alert and oriented. Exam of the left hand shows mild edema. Compartments are soft and compressible in the forearm. Sensation intact in the median, ulnar and radial distribution. The patient has good extension and flexion of his fingers. 2+ radial pulse. There is approximately a 1-2 cm incision over the dorsum of the wrist where the emergency room physician performed incision and drainage. There is purulent drainage draining from this wound. The patient has no pain with passive range of motion of the left wrist. LABORATORY DATA: White count of 15.2. Gram stain at this time has few gram positive cocci. IMAGING: X-ray shows no evidence of fracture or osteomyelitis. I ordered an MRI, which shows a very superficial abscess with no evidence of tenosynovitis or deep collection in the wrist. ASSESSMENT AND PLAN: A 52-year-old male with a superficial abscess, which has been drained by the emergency room, over the left wrist. The patient may be continued to be followed in the Wound Clinic. No indication for hand surgery at this time. No indication for followup with hand surgery. The patient may be discharged per the primary team once antibiotics and cultures are resulted. I will sign off. Please call with any questions. Janett Hayden MD [facility]/EVETTE , 10:33 AM , 10:40 AM YOBANI
[2018-04-07 13:36] LABS: Baso # (Auto) 0.1 th/mm3 (0.0-0.2); Baso % (Auto) 0.9 % (0.0-2.0); Eos # (Auto) 0.1 th/mm3 (0.0-0.4); Eos % (Auto) 1.2 % (0.0-4.0); Hematocrit 39.5 % (39.0-51.0); Lymph # (Auto) 1.4 th/mm3 (1.0-4.8); Lymph % (Auto) 14.5 % (9.0-44.0); Mean Corpuscular HGB Conc 32.9 % (32.0-36.0); Mean Corpuscular Hemoglobin 28.4 pg (27.0-34.0); Mean Corpuscular Volume 86.5 fL (80.0-100.0); Mean Platelet Volume 7.9 fL (7.0-11.0); Mono # (Auto) 0.9 th/mm3 (0.0-0.9); Mono % (Auto) 9.6 % (0.0-8.0); Neut # (Auto) 7.1 th/mm3 (1.8-7.7); Neut % (Auto) 73.8 % (16.0-70.0); Platelet Count 270 th/mm3 (150-450); Red Blood Count 4.57 mil/mm3 (4.50-5.90); Red Cell Distribution Width 13.6 % (11.6-17.2); White Blood Count 9.6 th/mm3 (4.0-11.0)
[2018-04-07 13:59] LABS: Albumin 2.8 g/dL (3.4-5.0); Anion Gap 7 meq/L (5-15); Aspartate Aminotransferase 25 U/L (15-37); Blood Urea Nitrogen 16 mg/dL (7-18); Calcium 8.7 mg/dL (8.5-10.1); Carbon Dioxide 22.9 meq/L (21.0-32.0); Chloride 108 meq/L (98-107); Glomerular Filtration Rate 52 mL/min (>89); Glucose,Random 106 mg/dL (74-106); Potassium 4.5 meq/L (3.5-5.1); Sodium 138 meq/L (136-145)
[2018-04-07 14:00] LABS: Alanine Aminotransferase 21 U/L (12-78)
[2018-04-07 14:03] LABS: Alkaline Phosphatase 79 U/L (45-117); Total Protein 7.3 g/dL (6.4-8.2)
--- NOTE | 2018-04-07 14:06 | P.HPUP ---
After hand surgeon saw patient, patient reported that he wants to leave AMA. He understands that if he leaves without proper treatment, he could suffer bacteremia, sepsis, and/or .
[2018-04-07] MEDS ORDERED: Vancomycin Inj 1,000 MG in Sodium Chlor 0.9% Inj 250 ML IV.SIG SCH (23:00)
[2018-04-08] MEDS ORDERED: Pharmacy Ordered Lab Info OTHER ONE (22:45)
== END 2018-04-07 14:40 | disposition left against medical advice (07) ==
LOC: NEPC 17:27 → NEDA 21:28 → N04 22:10
PROVIDERS: ADMIT Hospitalist; ATTEND Hospitalist